=== PATIENT | female | born 2000 | race Caucasian/White ===

== ENCOUNTER 2022-02-27 19:28 | Emergency (ER) | payer OTHER ==
[2022-02-27] MEDS ORDERED: morphine INJ 10 MG/ML 1ML (SYR OR VIAL) IVP STA (19:55)
--- NOTE | 2022-02-27 19:55 | ED GI ---
General Chief Complaint: Abdominal/GI Problems Stated Complaint: NAUSEA,LT SIDE ABD/BACK PAIN Nursing Triage Note: PT ARRIVAL TO ER VIA PRIVATE VEHICLE FROM HOME WITH SUDDEN ONSET OF LEFT SIDED FLANK AND ABDOMINAL PAIN. PATIENT HAVING PAINFUL URINATION SINCE PAIN STARTED AROUND 1830. PAIN AT 9/10 AND DESCRIBED SHARP. Source of Information: Patient Exam Limitations: No Limitations History of Present Illness Date Seen by Provider: Feb 27, 2022 Time Seen by Provider: 19:31 Initial Comments 22-year-old female with no pertinent past medical history coming in due to left flank pain radiating to her left lower quadrant. Started about an hour prior to arrival, sharp, constant, severe, nothing really seems to make it better or worse. Has some nausea but no vomiting. Endorses some dysuria with it as well. Denies any fever, chest pain, shortness of breath, weakness, numbness, vaginal bleeding, vaginal discharge, or any other concerns. Has never had pain like this before. LMP was just about a month ago. Allergies and Home Medications Allergies Coded Allergies: No Known Drug Allergies (Unverified , 02/27/22) Patient Home Medication List Home Medication List Reviewed: Yes Review of Systems Review of Systems Constitutional: No fever EENTM: No Symptoms Reported Respiratory: No Symptoms Reported Cardiovascular: No Symptoms Reported Gastrointestinal: See HPI Genitourinary: See HPI Musculoskeletal: no symptoms reported Skin: no symptoms reported Psychiatric/Neurological: No Symptoms Reported Endocrine: No Symptoms Reported Hematologic/Lymphatic: No Symptoms Reported All Other Systems Reviewed Negative Unless Noted: Yes Past Vdqhvxl-Gdufnv-Ogytfn Hx Patient Social History Tobacco Use?: No Use of E-Cig and/or Vaping dev: No Substance use?: No Alcohol Use?: No Pt feels they are or have been: No Immunizations Up To Date Influenza Vaccine Up-to-Date: No; Not Current COVID19 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 oz. kg; BMI Method: General Appearance: WD/WN, mild distress HEENT: PERRL/EOMI, normal ENT inspection, pharynx normal Neck: non-tender, full range of motion, supple, normal inspection Respiratory: chest non-tender, lungs clear, normal breath sounds, no respi ratory distress, no accessory muscle use Cardiovascular: regular rate, rhythm, no edema, no murmur Gastrointestinal: normal bowel sounds, non tender, soft; No distended, No guarding, No rebound Extremities: normal range of motion, non-tender, normal inspection, no pedal edema, no calf tenderness, normal capillary refill Back: normal inspection, no vertebral tenderness; No CVA tenderness (R); CVA tenderness (L) Neurologic/Psychiatric: no motor/sensory deficits, alert, normal mood/affect Skin: normal color, warm/dry Lymphatic: no adenopathy Progress/Results/Core Measures Results/Orders Lab Results Laboratory Tests Test 02/27/22 19:39 02/27/22 19:50 Range/Units Urine Color YELLOW Urine Clarity CLEAR Urine pH 6.0 5-9 Urine Specific [place] >=1.030 1.016-1.022 Urine Protein NEGATIVE NEGATIVE Urine Glucose (UA) NEGATIVE NEGATIVE Urine Ketones NEGATIVE NEGATIVE Urine Nitrite NEGATIVE NEGATIVE Urine Bilirubin NEGATIVE NEGATIVE Urine Urobilinogen 0.2 < = 1.0 MG/DL Urine Leukocyte Esterase NEGATIVE NEGATIVE Urine RBC (Auto) 1+ H NEGATIVE Urine RBC NONE /HPF Urine WBC 2-5 /HPF Urine Squamous Epithelial Cells 2-5 /HPF Urine Renal Epithelial Cells NONE /HPF Urine Crystals NONE /LPF Urine Bacteria MODERATE H /HPF Urine Casts NONE /LPF Urine Mucus NEGATIVE /LPF Urine Culture Indicated YES Urine Test NEGATIVE NEGATIVE White Blood Count 12.8 H 4.3-11.0 10^3/uL Red Blood Count 4.37 3.80-5.11 10^6/uL Hemoglobin 13.8 11.5-16.0 g/dL Hematocrit 41 35-52 % Mean Corpuscular Volume 94 80-99 fL Mean Corpuscular Hemoglobin 32 25-34 pg Mean Corpuscular Hemoglobin Concent 34 32-36 g/dL Red Cell Distribution Width 11.7 10.0-14.5 % Platelet Count 316 130-400 10^3/uL Mean Platelet Volume 9.6 9.0-12.2 fL Immature Granulocyte % (Auto) 0 % Neutrophils (%) (Auto) 61 42-75 % Lymphocytes (%) (Auto) 34 12-44 % Monocytes (%) (Auto) 5 0-12 % Eosinophils (%) (Auto) 1 0-10 % Basophils (%) (Auto) 0 0-10 % Neutrophils # (Auto) 7.7 1.8-7.8 10^3/uL Lymphocytes # (Auto) 4.3 H 1.0-4.0 10^3/uL Monocytes # (Auto) 0.6 0.0-1.0 10^3/uL Eosinophils # (Auto) 0.1 0.0-0.3 10^3/uL Basophils # (Auto) 0.0 0.0-0.1 10^3/uL Immature Granulocyte # (Auto) 0.0 0.0-0.1 10^3/uL Sodium Level 140 135-145 MMOL/L Potassium Level 3.8 3.6-5.0 MMOL/L Chloride Level 107 98-107 MMOL/L Carbon Dioxide Level 19 L 21-32 MMOL/L Anion Gap 14 5-14 MMOL/L Blood Urea Nitrogen 11 7-18 MG/DL Creatinine 0.87 0.60-1.30 MG/DL Estimat Glomerular Filtration Rate 97 BUN/Creatinine Ratio 13 Glucose Level 167 H 70-105 MG/DL Calcium Level 9.9 8.5-10.1 MG/DL Corrected Calcium 9.8 8.5-10.1 MG/DL Magnesium Level 1.8 1.6-2.4 MG/DL Total Bilirubin 0.2 0.1-1.0 MG/DL Aspartate Amino Transf (AST/SGOT) 22 5-34 U/L Alanine Aminotransferase (ALT/SGPT) 22 0-55 U/L Alkaline Phosphatase 55 40-136 U/L Total Protein 7.0 6.4-8.2 GM/DL Albumin 4.1 3.2-4.5 GM/DL Lipase 32 8-78 U/L My Orders Orders - KIARA STEPHENSON MD Ct Abd/Pelvis Wo(Kidney Stone) (02/27/22 19:52) Ed Iv/Invasive Line Start (02/27/22 19:52) Cbc With Automated Diff (02/27/22 19:52) Comprehensive Metabolic Panel (02/27/22 19:52) Lipase (02/27/22 19:52) Magnesium (02/27/22 19:52) Ua Culture If Indicated (02/27/22 19:52) Morphine Injection (Morphine Injection (02/27/22 19:55) Ketorolac Injection (Toradol Injection) (02/27/22 20:00) Ondansetron Injection (Zofran Injectio (02/27/22 20:00) Urine Culture (02/27/22 19:39) Hcg,Qualitative Urine (02/27/22 20:23) Medications Given in ED Current Medications Medications Dose Ordered Sig/Naty Route Start Time Stop Time Status Last Admin Dose Admin Ketorolac Tromethamine 15 mg ONCE ONCE IVP 02/27/22 20:00 02/27/22 20:01 DC 02/27/22 20:11 15 MG Ondansetron HCl 4 mg ONCE ONCE IVP 02/27/22 20:00 02/27/22 20:01 DC 02/27/22 20:12 4 MG Vital Signs/I&O 02/27/22 19:36 Temp 36.6 Pulse 69 Resp 18 B/P (MAP) 137/93 (108) Pulse Ox 98 O2 Delivery Room Air Blood Pressure Mean: 108 Progress Progress Note : Progress Note 22-year-old female with left flank pain going to her left pelvis. ABCs were intact and vitals were stable on presentation. Physical exam with left flank tenderness. Urinalysis with bacteria but no leukocyte esterase or nitrites. CT abdomen pelvis with concerns for a 2 mm stone in the lumen of the bladder that recently passed with some mild residual left-sided hydronephrosis. Patient's symptoms have improved after IV pain medicine. I believe she is stable for disc harge with outpatient follow-up. She was sent home with strict return precautions Diagnostic Imaging Diagonstic Imaging: CT (abd/pelvis) Comments NAME: NIURKA MAS [facility] REC#: [id number] PT STATUS: REG ER : 2000 PHYSICIAN: KIARA STEPHENSON MD ADMIT DATE: 02/27/22/ER Draft Date of Exam:02/27/22 CT ABD/PELVIS WO(KIDNEY STONE) PROCEDURE: CT urinary tract, rule out kidney stone. TECHNIQUE: Multiple contiguous axial images were obtained through the abdomen and pelvis without the use of intravenous contrast. Auto Exposure Controls were utilized during the CT exam to meet ALARA standards for radiation dose reduction. INDICATION: Left flank pain Unenhanced images of liver, gallbladder, pancreas, adrenal glands and spleen are unremarkable. The right kidney is also unremarkable on the noncontrasted study. Left kidney demonstrates slight prominence of the renal collecting system and left ureter. There is no appendiceal inflammation. No free fluid is seen within the abdomen or pelvis. There is an approximately 0.2 cm calculus in the dependent portion of the urinary bladder lumen. There is no evidence of pathologically enlarged adenopathy. There is bilateral L5 spondylolysis without spondylolisthesis. IMPRESSION: Approximately 0.2 cm stone in the bladder lumen likely represents recently passed left renal stone. There is mild left residual hydronephrosis. Dictated on workstation # [id number] Departure Impression Primary Impression: Kidney stone Additional Impression: Hydronephrosis Qualified Codes: N13.39 - Other hydronephrosis Disposition: HOME, SELF-CARE Condition: Stable Departure-Patient Inst. Decision time for Depature: 21:09 Referrals: NO,LOCAL PHYSICIAN (PCP) Primary Care Physician WALLACE TREVIZO MD Patient Instructions: Kidney Stones (DC) Add. Discharge Instructions: It looks like you just passed a kidney stone on the left side that went into your bladder now. Pain typically is significantly better after he gets into the bladder. Pain medicines were sent to your pharmacy. You also have some bacteria in your urine so an antibiotic was also sent. If you have any concerns, follow-up with Dr. Trevizo, the urologist here in town Scripts Ondansetron (Ondansetron Odt) 4 Mg Tab.rapdis 4 MG SL Q6H PRN for NAUSEA/VOMITING for 5 Days, #20 TAB Prov: KIARA STEPHENSON MD 02/27/22 Ketorolac Tromethamine (Ketorolac Tromethamine) 10 Mg Tablet 10 MG PO Q6H PRN for PAIN-MODERATE (5-7) for 3 Days, #12 TAB Prov: KIARA STEPHENSON MD 02/27/22 Sulfamethoxazole/Trimethoprim (Bactrim Ds Tablet) 1 Each Tablet 1 EACH PO BID for 5 Days, #10 TAB Prov: KIARA STEPHENSON MD 02/27/22 Tamsulosin HCl (Flomax) 0.4 Mg Cap 0.4 MG PO DAILY for 14 Days, #14 CAP Prov: KIARA STEPHENSON MD 02/27/22 Work/School Note: School/Childcare Release, Date Seen in the Emergency Department: Feb 27, 2022 Time Dismissed from Emergency Department: 21:14 Return to School: Mar 01, 2022 Restrictions: No Restrictions Work Release Form Date Seen in the Emergency Department: Feb 27, 2022 Return to Work: Mar 01, 2022 Restrictions: No Restrictions KIARA STEPHENSON MD Feb 27, 2022 19:55
[2022-02-27 19:59] LABS: BILIRUBIN,URINE NEGATIVE (NEGATIVE); CLARITY,URINE CLEAR; COLOR,URINE YELLOW; GLUCOSE, URINE (UA) NEGATIVE (NEGATIVE); KETONES,URINE NEGATIVE (NEGATIVE); LEUKOCYTE ESTERASE ,URINE NEGATIVE (NEGATIVE); NITRITE,URINE NEGATIVE (NEGATIVE); PROTEIN,URINE NEGATIVE (NEGATIVE)
[2022-02-27 19:59] LABS: BASOPHILS % (AUTO) 0 % (0-10); EOSINOPHILS # (AUTO) 0.1 10^3/uL (0.0-0.3); EOSINOPHILS % (AUTO) 1 % (0-10); HEMATOCRIT 41 % (35-52); HEMOGLOBIN 13.8 g/dL (11.5-16.0); LYMPHOCYTES # (AUTO) 4.3 10^3/uL (1.0-4.0); LYMPHOCYTES % (AUTO) 34 % (12-44); MEAN CORPUSCULAR HEMOGLOBIN 32 pg (25-34); MEAN CORPUSCULAR HGB CONC 34 g/dL (32-36); MEAN CORPUSCULAR VOLUME 94 fL (80-99); MEAN PLATELET VOLUME 9.6 fL (9.0-12.2); MONOCYTES # (AUTO) 0.6 10^3/uL (0.0-1.0); MONOCYTES % (AUTO) 5 % (0-12); NEUTROPHILS # (AUTO) 7.7 10^3/uL (1.8-7.8); NEUTROPHILS % (AUTO) 61 % (42-75); PLATELET COUNT 316 10^3/uL (130-400); WHITE BLOOD COUNT 12.8 10^3/uL (4.3-11.0)
[2022-02-27] MEDS ORDERED: ONDANSETRON 4 MG/2 ML (SDV) Z0FRAN IVP ONE (20:00)
[2022-02-27] MEDS ORDERED: KETOROLAC 30 MG/ML VIAL IVP ONE (20:00)
[2022-02-27 20:05] LABS: BACTERIA,URINE MODERATE /HPF
[2022-02-27 20:15] LABS: ALBUMIN 4.1 GM/DL (3.2-4.5); BILIRUBIN,TOTAL 0.2 MG/DL (0.1-1.0); CALCIUM 9.9 MG/DL (8.5-10.1); CREATININE SERUM 0.87 MG/DL (0.60-1.30); MAGNESIUM 1.8 MG/DL (1.6-2.4); POTASSIUM 3.8 MMOL/L (3.6-5.0)
--- NOTE | 2022-02-27 21:04 | Diagnostic Imaging Report ---
PROCEDURE: CT urinary tract, rule out kidney stone. TECHNIQUE: Multiple contiguous axial images were obtained through the abdomen and pelvis without the use of intravenous contrast. Auto Exposure Controls were utilized during the CT exam to meet ALARA standards for radiation dose reduction. INDICATION: Left flank pain Unenhanced images of liver, gallbladder, pancreas, adrenal glands and spleen are unremarkable. The right kidney is also unremarkable on the noncontrasted study. Left kidney demonstrates slight prominence of the renal collecting system and left ureter. There is no appendiceal inflammation. No free fluid is seen within the abdomen or pelvis. There is an approximately 0.2 cm calculus in the dependent portion of the urinary bladder lumen. There is no evidence of pathologically enlarged adenopathy. There is bilateral L5 spondylolysis without spondylolisthesis. IMPRESSION: Approximately 0.2 cm stone in the bladder lumen likely represents recently passed left renal stone. There is mild left residual hydronephrosis. Dictated by: Dictated on workstation # [id number]
[2022-02-27] MEDS ORDERED: TMSL.4C PO (21:14)
[2022-02-27] MEDS ORDERED: ONDA4TAB11 SL (21:14)
[2022-02-27] MEDS ORDERED: KETO10TA PO (21:14)
[2022-02-27] MEDS ORDERED: SULF1TAB38 PO (21:14)
[2022-02-27 21:30] VITALS: BP 107/69
== END 2022-02-27 21:30 | disposition home or self-care (01) ==
LOC: ER 19:31
DX: N13.2 Hydronephrosis with renal and ureteral calculous obstruction (principal); Z32.02 Encounter for pregnancy test, result negative
CPT/HCPCS: 36415; 74176; 80053; 81000; 83690; 83735; 84703; 85025; 87088